=== PATIENT | female | born 1975 | race Caucasian/White ===

== ENCOUNTER 2019-08-01 16:11 | Outpatient (CLI) | payer OTHER ==
--- NOTE | 2019-08-02 11:36 | XRAY Report ---
Reason: L ankle pain Procedure Date: 08/01/2019 Accession Number: [id number] / [id number] Procedure: XRN - Ankle 3 View LT CPT Code: Final Report FULL RESULT: EXAM: LEFT ANKLE RADIOGRAPHY EXAM DATE: 08/01/2019 04:34 PM. CLINICAL HISTORY: Left ankle pain. COMPARISON: None. TECHNIQUE: 3 views. FINDINGS: Bones: Small focal lucencies with surrounding sclerosis within the medial aspect of the talar dome, lucent/cystic foci measuring up to 4 mm. No henrry articular surface disruption or fragment. 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 No effusion. No subluxations. The ankle mortise is normally aligned. Soft Tissues: Normal. No soft tissue swelling. IMPRESSION: 1. No definite acute abnormality. 2. 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 3. Sclerosis and small focal lucencies within the medial aspect of the talar dome could be degenerative in nature. Osteochondral lesion not excluded. If further evaluation is indicated, MR imaging would be recommended. RADIA
== END 2019-08-01 16:12 | disposition home or self-care (01) ==
LOC: DI.N 16:11
PROVIDERS: ATTEND Nurse Practitioner Gerontology
DX: M19.072 Primary osteoarthritis, left ankle and foot (principal)

== ENCOUNTER 2019-08-12 10:10 | Outpatient (CLI) | payer OTHER ==
--- NOTE | 2019-08-12 12:57 | Mammography Report ---
Reason: ROUTINE MAMMO Procedure Date: 08/12/2019 Accession Number: [id number] / [id number] Procedure: MGN - Screening Mammo Dig Bilat CPT Code: Final Report FULL RESULT: EXAM: Screening Mammo Dig Bilat DATE: 08/12/2019 10:30 AM CLINICAL HISTORY: Baseline screening. No reported personal or family history of breast cancer. TECHNIQUE: (B) - Bilateral CC and MLO views were obtained. COMPARISON: None PARENCHYMAL PATTERN: (A) - The breasts demonstrate scattered fibroglandular densities bilaterally. FINDINGS: Bilateral breasts: There are no suspicious masses, calcifications, or areas of distortion. IMPRESSION: Negative examination. BI-RADS category 1. RECOMMENDATION: (ANNUAL) - Recommend routine annual screening mammography. BI-RADS CATEGORY: STANDARD QUALIFYING STATEMENTS: 1. This examination was not reviewed with the aid of Computer-Aided Detection (CAD). 2. A negative or benign imaging report should not preclude biopsy if clinically suspicious findings are present. 3. Dense breasts may obscure an underlying neoplasm. 4. This examination was reviewed without the aid of 3D breast imaging (tomosynthesis).
== END 2019-08-12 10:11 | disposition home or self-care (01) ==
LOC: DI.N 10:10
PROVIDERS: ATTEND Nurse Practitioner Gerontology
DX: Z12.31 Encounter for screening mammogram for malignant neoplasm of breast (principal)
CPT/HCPCS: 77067

== ENCOUNTER 2021-02-18 16:36 | Outpatient (CLI) | payer OTHER ==
[2021-02-18 20:54] LABS: ESTIMATED AVERAGE GLUCOSE 100 mg/dL (70-100); HEMOGLOBIN A1c% 5.1 % (4.27-6.07)
[2021-02-18 20:58] LABS: BASOPHILS # (AUTO) 0.1 10^3/uL (0.0-0.1); BASOPHILS % (AUTO) 0.7 %; EOSINOPHILS % (AUTO) 0.6 %; HCT - HEMATOCRIT 39.6 % (37.0-47.0); HGB - HEMOGLOBIN 12.7 g/dL (12.0-16.0); LYMPHOCYTES # (AUTO) 2.7 10^3/uL (1.5-3.5); LYMPHOCYTES % (AUTO) 37.6 %; MEAN CORPUSCULAR HGB CONC 32.1 g/dL (32.0-36.0); MEAN CORPUSCULAR VOLUME 90.4 fL (81.0-99.0); MEAN PLATELET VOLUME 9.9 fL (7.9-10.8); MONOCYTES # (AUTO) 0.4 10^3/uL (0.0-1.0); NEUTROPHILS # (AUTO) 3.9 10^3/uL (1.5-6.6); NEUTROPHILS % (AUTO) 54.8 %; PLT - PLATELET COUNT 325 10^3/uL (130-450); RED BLOOD COUNT 4.38 10^6/uL (4.20-5.40); RED CELL DISTRIBUTION WIDTH 12.2 % (12.0-15.0); WHITE BLOOD COUNT 7.1 x10^3/uL (4.8-10.8)
[2021-02-18 21:13] LABS: ALBUMIN 4.1 g/dL (3.2-5.5); ALBUMIN/GLOBULIN RATIO 1.2 (1.0-2.2); ALKALINE PHOSPHATASE 64 IU/L (42-121); ALT ALANINE AMINOTRANSFERASE 31 IU/L (10-60); AST ASPARTATE AMINOTRANSFERASE 25 IU/L (10-42); BILIRUBIN,TOTAL < 0.2 mg/dL (0.2-1.0); BUN - BLOOD UREA NITROGEN 12 mg/dL (6-20); CALCIUM 8.8 mg/dL (8.5-10.3); CARBON DIOXIDE - CO2 28 mmol/L (21-32); CHLORIDE 102 mmol/L (101-111); CHOL/HDL RATIO 3.5 (<4.4); CHOLESTEROL 205 mg/dL; CREATININE 0.6 mg/dL (0.4-1.0); GFR - MDRD 108 (>89); GLUCOSE 78 mg/dL (70-100); HDL CHOLESTEROL 59 mg/dL; LDL CHOLESTEROL,CALCULATED 116 mg/dL; POTASSIUM 3.3 mmol/L (3.5-5.0); SODIUM 135 mmol/L (135-145); TOTAL PROTEIN 7.5 g/dL (6.7-8.2); TRIGLYCERIDES 149 mg/dL; VLDL CHOLESTEROL 30 mg/dL
[2021-02-18 21:22] LABS: THYROID STIMULATING HORMONE 0.74 uIU/mL (0.34-5.60)
== END 2021-02-18 16:37 | disposition home or self-care (01) ==
LOC: EDBD → LAB.N 16:36
PROVIDERS: ATTEND Family Medicine
DX: I10 Essential (primary) hypertension (principal); E66.9 Obesity, unspecified
CPT/HCPCS: 36415; 80053; 80061; 83036; 83721; 84443; 85025

== ENCOUNTER → 2021-07-15 | Outpatient (CLI) | payer OTHER | LOC: LAB 08:00 | PROVIDERS: ATTEND Family Medicine | DX: N39.0 Urinary tract infection, site not specified (principal) | CPT/HCPCS: 87086 ==

== ENCOUNTER 2021-12-30 08:00 | Outpatient (CLI) | payer OTHER ==
[2021-12-30 18:24] LABS: BILIRUBIN,URINE NEGATIVE (NEGATIVE); GLUCOSE, URINE (UA) NEGATIVE (NEGATIVE); KETONES,URINE (UA) NEGATIVE (NEGATIVE); LEUKOCYTE ESTERASE, URINE LARGE (NEGATIVE); NITRITE,URINE NEGATIVE (NEGATIVE); OCCULT BLOOD,URINE MODERATE (NEGATIVE); PH,URINE 5.5 PH (5.0-7.5); PROTEIN,URINE NEGATIVE (NEGATIVE); UROBILINOGEN,URINE 0.2 (NORMAL) E.U./dL (NORMAL)
[2021-12-30 18:32] LABS: CLARITY,URINE CLEAR (CLEAR)
[2021-12-30 19:12] LABS: BACTERIA,URINE Rare /HPF (None Seen); EPITHELIAL CELLS,UR RARE Transitional /HPF (<= Few); SQUAMOUS EPITHELIAL CELL,UR RARE Squamous (<= Few); WBC,URINE >25 /HPF (0-5)
[2021-12-30 19:13] LABS: TRICHOMONAS,URINE PRESENT (None Seen)
== END 2021-12-30 23:59 | disposition home or self-care (01) ==
LOC: LAB.R 08:00
PROVIDERS: ATTEND Nurse Practitioner Family
DX: N76.0 Acute vaginitis (principal); R35.0 Frequency of micturition
CPT/HCPCS: 81001; 87086

== ENCOUNTER 2022-01-13 17:20 | Emergency (ER) | payer OTHER ==
--- NOTE | 2022-01-13 18:50 | ED Physician Documentation ---
History of Present Illness - Stated complaint Stated Complaint: FEVER,DIARRHEA,ABD PX - Chief complaint Chief Complaint: General - History obtained from History obtained from: Patient - History of Present Illness Pain level max: 8 Pain level now: 6 - Additonal information Additional information: Patient is a 46-year-old female has had diarrhea for the past 4 days. Today she developed right upper quadrant abdominal pain. Nothing seems to make it better or worse. She did have fevers a few days ago but states none today. Pain is wo rse with palpation, movement and deep breathing. No history of abdominal surgeries in the past. No history of ulcers. Review of Systems Constitutional: denies: Fever, Chills Nose: denies: Rhinorrhea / runny nose, Congestion Throat: denies: Sore throat GI: reports: Diarrhea. denies: Vomiting, Constipation, Hematemesis, Bloody / black stool : denies: Dysuria, Frequency, Hesitancy Skin: denies: Rash Musculoskeletal: denies: Neck pain, Back pain PD PAST MEDICAL HISTORY - Past Medical History Past Medical History: Yes Cardiovascular: Hypertension - Past Surgical History Past Surgical History: No - Present Medications Home Medications: Ambulatory Orders Medication Instructions Recorded Confirmed HYDROcod/ACETAM 5/325 [[place] 5/325] 1 - 2 ea PO Q6H PRN #14 tablet 01/13/22 Ondansetron Odt [Zofran] 4 mg TL Q6H PRN #10 tablet 01/13/22 - Allergies Allergies/Adverse Reactions: Allergies Allergy/AdvReac Type Severity Reaction Status Date / Time No Known Drug Allergies Allergy Verified 01/13/22 17:26 - Living Situation Living Arrangement: reports: At home - Social History Does the pt smoke?: No Does the pt drink ETOH?: Yes Does the pt have substance abuse?: No PD ED PE NORMAL - Vitals Vital signs reviewed: Yes - General General: Alert and oriented X 3, No acute distress - HEENT HEENT: PERRL, Moist mucous membranes - Neck Neck: Supple, no meningeal sign - Cardiac Cardiac: RRR - Respiratory Respiratory: No respiratory distress, Clear bilaterally - Abdomen Abdomen: Soft, Non distended, Other (Tender to palpation right upper quadrant. No peritoneal signs. Otherwise benign abdominal exam.) - Back Back: No CVA TTP, No spinal TTP - Derm Derm: Warm and dry - Extremities Extremities: No edema - Neuro Neuro: Alert and oriented X 3 - Psych Psych: Normal mood, Normal affect Results - Vitals Vitals: Vital Signs - 24 hr 01/13/22 01/13/22 17:27 22:08 Temperature 36.8 C 37.1 C Heart Rate 94 85 Respiratory 18 16 Rate Blood Pressure 128/82 H 130/70 O2 Saturation 98 98 Oxygen O2 Source Room air - Labs Labs: Laboratory Tests 01/13/22 01/13/22 01/13/22 18:18 18:52 18:52 WBC 7.0 RBC 4.22 Hgb 12.2 Hct 36.5 L MCV 86.5 MCH 28.9 MCHC 33.4 RDW 12.7 Plt Count 200 MPV 9.3 Neut # (Auto) 4.2 Lymph # (Auto) 2.1 Gilchrist # (Auto) 0.6 Eos # (Auto) 0.1 Baso # (Auto) 0.0 Absolute Nucleated RBC 0.00 Band Neuts % (Manual) Not Reportable Abnorm Lymph % (Manual) Not Reportable Nucleated RBC % 0.0 Neutrophils # (Manual) Not Reportable Lymphocytes # (Manual) Not Reportable Monocytes # (Manual) Not Reportable Eosinophils # (Manual) Not Reportable Basophils # (Manual) Not Reportable Differential Comment MANUAL=AUTO DIFF WBC Morphology NORMAL APPEARANCE Platelet Estimate NORMAL (130-450,000) Platelet Morphology NORMAL APPEARANCE RBC Morph Micro Appear NORMAL APPEARANCE Sodium 133 L Potassium 3.1 L Chloride 97 L Carbon Dioxide 26 Anion Gap 10.0 BUN 8 Creatinine 0.5 Estimated GFR (MDRD) 133 Glucose 93 Calcium 8.3 L Total Bilirubin 0.3 AST 17 ALT 17 Alkaline Phosphatase 47 Total Protein 7.0 Albumin 3.4 Globulin 3.6 Albumin/Globulin Ratio 0.9 L Lipase 32 Urine Color YELLOW Urine Clarity CLEAR Urine pH 6.0 Ur Specific [place] 1.010 Urine Protein NEGATIVE Urine Glucose (UA) NEGATIVE Urine Ketones NEGATIVE Urine Occult Blood SMALL H Urine Nitrite NEGATIVE Urine Bilirubin NEGATIVE Urine Urobilinogen 0.2 (NORMAL) Ur Leukocyte Esterase NEGATIVE Urine RBC 0-5 Urine WBC 0-3 Ur Squamous Epith Cells MOD Squamous H Urine Bacteria Rare Ur Microscopic Review INDICATED Urine Culture Comments NOT INDICATED Urine HCG, Qual NEGATIVE - Rads (name of study) Right upper quadrant ultrasound Radiology: Final report received, EMP read contemporaneously, See rad report PD MEDICAL DECISION MAKING - ED course Complexity details: reviewed results, re-evaluated patient, considered differential, d/w patient ED course: 46-year-old female with right upper quadrant abdominal pain and diarrhea for the past 4 days. No acute findings on ultrasound other than a fatty liver. No gallstones. No acute cholecystitis. Pain well controlled. We did discuss a CT scan, but patient declines this at this time. We will trial her on pain medication and antiemetics for home. Likely that this represents a viral illness. Patient will return for fevers, worsening pain or other new or worrisome symptoms. I am prescribing a short course of short-acting opioid pain medication for this patient. I have reviewed the patients PLATE [employer]ILLER and no concerning findings were noted. I have discussed that the opioids are for short term therapy only, and will not be refilled from the ED. patient counseled regarding signs and symptoms for which I believe and urgent re-evaluation would be necessary. Patient with good understanding of and agreement to plan and is comfortable going home at this time This document was made in part using voice recognition software. While efforts are made to proofread this document, sound alike and grammatical errors may occur. Departure - Departure Disposition: 01 Home, Self Care Clinical Impression: Viral diarrhea Condition: Good Instructions: ED Diarrhea Viral Follow-Up: your,doctor in 1 week if not better [Other] Prescriptions: HYDROcod/ACETAM 5/325 [[place] 5/325] 1 - 2 ea PO Q6H PRN #14 tablet PRN Reason: Pain Ondansetron Odt [Zofran] 4 mg TL Q6H PRN #10 tablet PRN Reason: Nausea / Vomiting Comments: Please follow-up with your doctor for further care. Your testing does not show any acute abnormalities today. Your white blood cell count is normal. You did have mild dehydration. We did discuss a CT scan, but have decided not to perform this at this time. If your fevers recur, your pain worsens or symptoms worsen, please return for further evaluation. Your prescriptions were sent to [facility] in [place]. This usually will improve over the next 2 to 3 days. I am prescribing a short course of narcotic pain medication for you. These are potentially dangerous and addictive medications that should be used carefully. These medications may constipate you. Take an vrxw-vqj-apgthjo stool softener (docusate) twice daily with plenty of water while taking these medications. If you go 24 hours without a bowel movement, take imev-ncj-dshxgnl miralax, per package instructions. Do not drink or drive while taking these medications. If you received narcotic or sedating medications while in the emergency department, do not drive for 24 hours. Store this medication in a safe, secure place and out of reach of children. It is a violation of federal law to give or sell this medication to another person or to use in a manner other than prescribed. The ED will not refill narcotic prescriptions, including prescriptions lost or stolen. To dispose of unwanted medications: 1. [facility] at [address] in [place] has a medication drop box. They accept prescription medications (in pill form) Thursday through Thursday 9:00 a.m. to 5:00 p.m. 2. The [facility] [employer] accepts prescription medications (in pill form only) for disposal year round. Call for more information. 3. Contact the [facility] for the next [facility] sponsored prescription drug collection event. , [phone], or [phone]; Forms: Activity restrictions Discharge Date/Time: 01/13/22 22:09
[2022-01-13 18:56] LABS: BASOPHILS % (AUTO) 0.6 %; EOSINOPHILS # (AUTO) 0.1 10^3/uL (0.0-0.7); HCT - HEMATOCRIT 36.5 % (37.0-47.0); HGB - HEMOGLOBIN 12.2 g/dL (12.0-16.0); LYMPHOCYTES # (AUTO) 2.1 10^3/uL (1.5-3.5); LYMPHOCYTES % (AUTO) 29.2 %; MEAN CORPUSCULAR HEMOGLOBIN 28.9 pg (27.0-31.0); MEAN CORPUSCULAR HGB CONC 33.4 g/dL (32.0-36.0); MEAN CORPUSCULAR VOLUME 86.5 fL (81.0-99.0); MEAN PLATELET VOLUME 9.3 fL (7.9-10.8); MONOCYTES # (AUTO) 0.6 10^3/uL (0.0-1.0); NEUTROPHILS # (AUTO) 4.2 10^3/uL (1.5-6.6); NEUTROPHILS % (AUTO) 60.1 %; PLT - PLATELET COUNT 200 10^3/uL (130-450); RED BLOOD COUNT 4.22 10^6/uL (4.20-5.40); RED CELL DISTRIBUTION WIDTH 12.7 % (12.0-15.0)
[2022-01-13 19:23] LABS: ALBUMIN 3.4 g/dL (3.2-5.5); ALBUMIN/GLOBULIN RATIO 0.9 (1.0-2.2); BILIRUBIN,TOTAL 0.3 mg/dL (0.2-1.0); CALCIUM 8.3 mg/dL (8.5-10.3); CREATININE 0.5 mg/dL (0.4-1.0); POTASSIUM 3.1 mmol/L (3.5-5.0)
[2022-01-13] MEDS ORDERED: SODIUM CHLORIDE 0.9% 1,000 ML IV STA ×2 (19:30)
[2022-01-13 19:41] LABS: BILIRUBIN,URINE NEGATIVE (NEGATIVE); GLUCOSE, URINE (UA) NEGATIVE (NEGATIVE); HCG UR QUAL NEGATIVE; KETONES,URINE (UA) NEGATIVE (NEGATIVE); LEUKOCYTE ESTERASE, URINE NEGATIVE (NEGATIVE); NITRITE,URINE NEGATIVE (NEGATIVE); OCCULT BLOOD,URINE SMALL (NEGATIVE); PROTEIN,URINE NEGATIVE (NEGATIVE); UROBILINOGEN,URINE 0.2 (NORMAL) E.U./dL (NORMAL)
[2022-01-13 19:45] LABS: PLATELET ESTIMATE, MANUAL NORMAL (130-450,000) (NORMAL); PLATELET MORPHOLOGY NORMAL APPEARANCE (NORMAL); RBC MORPHOLOGY (MULTIPLE) NORMAL APPEARANCE (NORMAL); WBC MORPHOLOGY (MULTIPLE) NORMAL APPEARANCE (NORMAL)
[2022-01-13 19:46] LABS: DIFFERENTIAL COMMENT MANUAL=AUTO DIFF
[2022-01-13 19:52] LABS: CLARITY,URINE CLEAR (CLEAR)
[2022-01-13 20:06] LABS: BACTERIA,URINE Rare /HPF (None Seen); RBC,URINE 0-5 /HPF (0-5); SQUAMOUS EPITHELIAL CELL,UR MOD Squamous (<= Few); WBC,URINE 0-3 /HPF (0-5)
[2022-01-13] MEDS ORDERED: HYDROcod/ACETAM 5/325 MG TABLET PO STA (21:50)
[2022-01-13] MEDS ORDERED: ONDANSETRON ODT 4 MG TABLET TL STA (21:50)
[2022-01-13 22:10] VITALS: BP 130/70
--- NOTE | 2022-01-13 22:44 | Ultrasound Report ---
PROCEDURE: Abdomen Limited INDICATIONS: RUQ abd pain TECHNIQUE: Real-time focused scanning was performed of the abdomen, with image documentation. COMPARISON: None. FINDINGS: Liver is prominent in size measuring 18.5 cm. There is increased echogenicity. There is focal fatty s paring near the gallbladder. There is hepatopedal flow. Gallbladder is nondistended. No stones or sludge. No gallbladder wall thickening. No pericholecystic fluid. Negative sonographic Muller sign. CBD measures 3 mm. Pancreas is obscured. Right kidney: Measures 10.5 cm. Cortex 1.5 cm. No hydronephrosis. IMPRESSION: Exam is limited due to acoustic windows and bowel gas. 1. No acute cholecystitis. No gallstones. 2. Increased echogenicity of the hepatic parenchyma. This is most commonly seen in hepatic steatosis. Other forms of hepatocellular disease could have a similar appearance. Reviewed by: Alcides Norris MD on 01/13/2022 10:42 PM PDT Approved by: Alcides Norris MD on 01/13/2022 10:42 PM PDT Station ID: [id number]
== END 2022-01-13 22:09 | disposition home or self-care (01) ==
LOC: ED 17:20
DX: A08.4 Viral intestinal infection, unspecified (principal); R10.11 Right upper quadrant pain
CPT/HCPCS: 36415; 76705; 80053; 81001; 81025; 83690; 85025; 99284; A9270; Q0162; 81003; 87086

== ENCOUNTER 2022-02-11 09:23 | Outpatient (CLI) | payer OTHER ==
--- NOTE | 2022-02-12 13:42 | Mammography Report ---
BILATERAL DIGITAL SCREENING MAMMOGRAM 3D/2D: 02/11/2022 CLINICAL: Routine screening. Comparison is made to exam dated: 08/12/2019 mammogram - [facility]. There are sc attered fibroglandular elements in both breasts. There is a focal asymmetry in the left breast central to the nipple middle depth. No other significant masses, calcifications, or other findings are seen in either breast. IMPRESSION: INCOMPLETE: NEEDS ADDITIONAL IMAGING EVALUATION The focal asymmetry in the left breast is indeterminate. Additional views with possible ultrasound a re recommended. This exam was interpreted at Station ID: [id number]. NOTE: For mammograms, a report in lay terms will be sent to the patient. Approximately 15% of breast malignancies will not be visualized mammographically. In the management of a palpable breast mass, a negative mammogram must not discourage biopsy of a clinically suspicious lesion. Electronically Signed By: Shannan Deal M.D. lk/:02/11/2022 16:49:23 ACR BI-RADS Category 0: Incomplete 3340F PARENCHYMAL PATTERN: (A) - The breast(s) demonstrate(s) scattered fibroglandular densities. BI-RADS CATEGORY: (0) - 0 Mammo and [place] [id number] Immediate follow-up LATERALITY: (B)
== END 2022-02-11 09:24 | disposition home or self-care (01) ==
LOC: DI.N 09:23
PROVIDERS: ATTEND Nurse Practitioner Family
DX: Z12.31 Encounter for screening mammogram for malignant neoplasm of breast (principal); R92.8 Other abnormal and inconclusive findings on diagnostic imaging of breast

== ENCOUNTER 2022-02-14 07:19 | Outpatient (CLI) | payer OTHER ==
[2022-02-15 00:14] LABS: CHLAMYDIA TRACHOMATIS DNA NEGATIVE (NEGATIVE); NEISSERIA GONORRHOEAE DNA NEGATIVE (NEGATIVE); TRICHOMONAS VAGINALIS DNA NEGATIVE (NEGATIVE)
== END 2022-02-14 07:20 | disposition home or self-care (01) ==
LOC: LAB.N 07:19
PROVIDERS: ATTEND Nurse Practitioner Family
DX: A59.01 Trichomonal vulvovaginitis (principal)
CPT/HCPCS: 87491; 87591; 87661

== ENCOUNTER 2022-03-12 09:08 | Outpatient (CLI) | payer OTHER ==
--- NOTE | 2022-03-13 07:57 | Mammography Report ---
UNILATERAL LEFT DIGITAL DIAGNOSTIC MAMMOGRAM 3D/2D: 03/12/2022 CLINICAL: Patient returns today to evaluate a focal asymmetry in the left breast. Comparison is made to exams dated: 02/11/2022 mammogram and 08/12/2019 mammogram - [facility]. There are scattered fibroglandular elements in left breast. The previously questioned asymmetry in the left breast central to the nipple middle depth is no longe r seen and is consistent with fibroglandular tissue. This is not seen in additional views. No other significant masses or calcifications are seen in the breast. IMPRESSION: BENIGN Previously questioned asymmetry dissipates with compression and is not confirmed on additional views. Return to annual mammogram screening schedule is recommended. This exam was interpreted at Station ID: [id number]. NOTE: For mammograms, a report in lay terms will be sent to the patient. Approximately 15% of breast malignancies will not be visualized mammographically. In the management of a palpable breast mass, a negative mammogram must not discourage biopsy of a clinically suspicious lesion. Electronically Signed By: Murali Aguirre M.D. jr/:03/12/2022 15:44:56 ACR BI-RADS Category 2: Benign Finding(s) 3342F PARENCHYMAL PATTERN: (A) - The breast(s) demonstrate(s) scattered fibroglandular densities. BI-RADS CATEGORY: (2) - 2 Mammogram [id number] return to screening LATERALITY: (B)
== END 2022-03-12 09:09 | disposition home or self-care (01) ==
LOC: DI 09:08
PROVIDERS: ATTEND Nurse Practitioner Family
DX: R92.8 Other abnormal and inconclusive findings on diagnostic imaging of breast (principal)

== ENCOUNTER 2022-11-07 08:00 | Outpatient (CLI) | payer OTHER ==
[2022-11-07 18:12] LABS: BILIRUBIN,URINE NEGATIVE (NEGATIVE); GLUCOSE, URINE (UA) NEGATIVE (NEGATIVE); KETONES,URINE (UA) NEGATIVE (NEGATIVE); LEUKOCYTE ESTERASE, URINE NEGATIVE (NEGATIVE); NITRITE,URINE NEGATIVE (NEGATIVE); OCCULT BLOOD,URINE NEGATIVE (NEGATIVE); PROTEIN,URINE NEGATIVE (NEGATIVE); UROBILINOGEN,URINE 0.2 (NORMAL) E.U./dL (NORMAL)
[2022-11-07 18:13] LABS: CLARITY,URINE CLEAR (CLEAR)
[2022-11-07 18:33] LABS: BACTERIA,URINE Few /HPF (None Seen); MUCUS,URINE Moderate Strands; RBC,URINE 0-5 /HPF (0-5); SQUAMOUS EPITHELIAL CELL,UR MOD Squamous (<= Few)
== END 2022-11-07 23:59 | disposition home or self-care (01) ==
LOC: LAB.WCP 08:00
PROVIDERS: ATTEND Physician Assistant
DX: N30.00 Acute cystitis without hematuria (principal)
CPT/HCPCS: 81001; 87086

== ENCOUNTER 2023-09-30 08:45 | Outpatient (CLI) | payer OTHER ==
--- NOTE | 2023-09-30 10:16 | XRAY Report ---
PROCEDURE: Toe(s) LT INDICATIONS: CONTUSION OF LEFT LESSER TOE(S) TECHNIQUE: 3 views of the fourth toe(s) acquired. COMPARISON: None. FINDINGS: Bones: No fractures or dislocations. No suspicious bony lesions. Soft tissues: No suspicious soft tissue densities. IMPRESSION: No acute bony abnormality. Reviewed by: Jimenez Viera MD on 09/30/2023 10:15 AM [facility] Approved by: Jimenez Viera MD on 09/30/2023 10:15 AM [facility] Station ID: [id number]
== END 2023-09-30 09:00 | disposition home or self-care (01) ==
LOC: DI.N 08:45
PROVIDERS: ATTEND Nurse Practitioner
DX: S90.122A Contusion of left lesser toe(s) without damage to nail, initial encounter (principal)
CPT/HCPCS: 73660

== ENCOUNTER 2024-06-08 08:33 | Outpatient (CLI) | payer OTHER ==
[2024-06-08 11:54] LABS: BASOPHILS # (AUTO) 0.1 10^3/uL (0.0-0.1); EOSINOPHILS # (AUTO) 0.1 10^3/uL (0.0-0.7); EOSINOPHILS % (AUTO) 0.7 %; HCT - HEMATOCRIT 44.2 % (37.0-47.0); HGB - HEMOGLOBIN 13.7 g/dL (12.0-16.0); LYMPHOCYTES # (AUTO) 2.5 10^3/uL (1.5-3.5); LYMPHOCYTES % (AUTO) 36.7 %; MEAN CORPUSCULAR HEMOGLOBIN 27.7 pg (27.0-31.0); MEAN CORPUSCULAR VOLUME 89.5 fL (81.0-99.0); MONOCYTES # (AUTO) 0.3 10^3/uL (0.0-1.0); MONOCYTES % (AUTO) 4.9 %; NEUTROPHILS # (AUTO) 3.8 10^3/uL (1.5-6.6); NEUTROPHILS % (AUTO) 56.4 %; PLT - PLATELET COUNT 316 10^3/uL (130-450); RED BLOOD COUNT 4.94 10^6/uL (4.20-5.40); RED CELL DISTRIBUTION WIDTH 12.4 % (12.0-15.0); WHITE BLOOD COUNT 6.7 x10^3/uL (4.8-10.8)
[2024-06-08 12:03] LABS: ALBUMIN 4.5 g/dL (3.2-5.5); ALBUMIN/GLOBULIN RATIO 1.6 (1.0-2.2); ALKALINE PHOSPHATASE 87 IU/L (42-121); ALT ALANINE AMINOTRANSFERASE 33 IU/L (10-60); AST ASPARTATE AMINOTRANSFERASE 26 IU/L (10-42); BILIRUBIN,TOTAL 0.3 mg/dL (0.2-1.0); BUN - BLOOD UREA NITROGEN 22 mg/dL (6-20); CALCIUM 9.5 mg/dL (8.5-10.3); CARBON DIOXIDE - CO2 29 mmol/L (21-32); CHLORIDE 105 mmol/L (101-111); CHOL/HDL RATIO 3.4 (<4.4); CHOLESTEROL 200 mg/dL; CREATININE 0.5 mg/dL (0.6-1.3); GFR - MDRD 131 (>89); GLUCOSE 98 mg/dL (74-104); HDL CHOLESTEROL 59 mg/dL; LDL CHOLESTEROL,CALCULATED 112 mg/dL; LDL/HDL RATIO 1.9 (<4.4); POTASSIUM 4.2 mmol/L (3.5-4.5); SODIUM 139 mmol/L (135-145); TOTAL PROTEIN 7.4 g/dL (6.4-8.9); TRIGLYCERIDES 145 mg/dL; VLDL CHOLESTEROL 29 mg/dL
[2024-06-08 12:17] LABS: THYROID STIMULATING HORMONE 1.17 uIU/mL (0.34-5.60)
== END 2024-06-08 08:34 | disposition home or self-care (01) ==
LOC: LAB.N 08:33
PROVIDERS: ATTEND Nurse Practitioner Family
DX: I10 Essential (primary) hypertension (principal); Z13.220 Encounter for screening for lipoid disorders; Z13.29 Encounter for screening for other suspected endocrine disorder
CPT/HCPCS: 36415; 80053; 80061; 83721; 84443; 85025